=== PATIENT | female | born 2000 | race Caucasian/White ===

== ENCOUNTER 2022-11-16 16:57 | Emergency (ER) | payer BC ==
[2022-11-16 17:26] LABS: Analyzer IN Cardio ER; Critical Notified Time 1703
[2022-11-16 17:27] LABS: Actual Bicarbonate (HCO3v) 19.9 mEq/L (22-28); pH (venous) 7.081 (7.32-7.43)
[2022-11-16 17:28] LABS: Base Excess -10.6 mEq/L (-2 - +2); Hematocrit-VBG 34 % (36.0-47.0); Hemoglobin (Hb) 11.4 g/dL (11.7-15.5)
[2022-11-16 17:29] LABS: Potassium (VBG) 3.14 mmol/L (3.70-5.30)
[2022-11-16 17:30] LABS: Calcium, Ionized (venous) 1.01 mmol/L (1.16-1.32)
[2022-11-16 17:32] LABS: Chloride (VBG) 103 mmol/L (98-106)
[2022-11-16 17:33] LABS: RapidComm Comment BVM
== END 2022-11-16 17:05 | disposition expired ==
LOC: CSHERS 16:57
DX: I46.9 Cardiac arrest, cause unspecified (principal)
CPT/HCPCS: 31500; 82805; 92950; 94760